=== PATIENT | male | born 1965 | race Caucasian/White ===

== ENCOUNTER 2017-02-18 17:35 | Observation (INO) ==
[2017-02-18] MEDS ORDERED: Aspirin 81 MG TAB.CHEW PO ONE (17:49)
--- NOTE | 2017-02-18 18:01 | Emergency Department Note ---
Disposition Clinical Impression: Chest pain of uncertain etiology Disposition: Still a Patient General Adult HPI - General Chief complaint: ED Shortness of Breath/Dyspnea Stated complaint: cardiac symptoms Time Seen by Provider: 02/18/17 17:48 Source: patient Limitations: no limitations Nursing Notes Reviewed: Yes Vital Signs Reviewed: Yes - History of Present Illness HPI Narrative: Mr. Anglin, a 51yo male, presents from home for evaluation of dyspnea with left arm pain. Dyspnea onset several weeks ago and progressive; now awakening the patient at night with associated diaphoresis. Left arm pain started 3-4 days ago. Described as from his shoulder to elbow, worse with movement. The patient has previous MT. Patient also notes increased personal stressors. Patient also notes 3-4 days of "chest discomfort" described as "feeling off." Patient has lost 30 pounds over 3 months, unintentional; he attributes this to stress. Patient notes a single episode of syncope while sitting in his bed. He noted he had been afebrile with general illness which she attributes to his right lower dental infection. Patient also has a known dental caries, follows with [facility]. PMH: HTN, HLD, CAD with ACS (MT in 2011, 1 stent), depression & anxiety Pain Scale: 4 - Related Data Allergies Allergy/AdvReac Type Severity Reaction Status Date / Time codeine Allergy Itching Verified 02/18/17 17:46 All systems ED: reviewed and negative except as stated. Review of Systems: As Per HPI Past Medical History - Past Medical History Medical history: Reports: hypertension, myocardial infarction Psychiatric history: Reports: depression - Social History Smoking Status: Current every day smoker Alcohol use: Reports: none Drug use: Reports: none Physical Exam Vital Signs Reviewed General: Patient is alert, oriented, and in no acute distress. HEENT: No facial asymmetry. Head is normocephalic and atraumatic. Oral mucosa moist. Trachea midline. Cardiovascular: Heart regular rate and rhythm without clicks, rubs, gallops, or murmurs. No JVD. PMI nondisplaced. No edema. Bilateral radial posterior tibial pulses 2/4. Respiratory: Symmetric chest rise with good respiratory effort. Bilateral breath sounds are clear without wheezing, crackles, or rhonchi. Abdomen: Bowel sounds present normoactive x-4 quadrants. Abdomen is soft, nondistended, and nontender. No organomegaly noted. Musculoskeletal: Spontaneously sleeping moving all extremities. Neuro: GCF 15. Alert and oriented 4. Skin: Warm, dry, intact. Psych: Patient's affect is appropriate for situation. - General Limitations: no limitations General appearance: alert, in no apparent distress Course Course Narrative: Patient has multiple cardiac risk factors: Hypertension, hyperlipidemia, current every day smoker, history of MT with stent. His symptoms are atypical for ACS however, for him, are consistent with the events leading to his prior MT. Will perform chest pain workup. Patient has been signed out to the night team, Dr. Moran and Dr. Araujo. Vital Signs Temperature 98.1 F 02/18/17 17:44 Pulse Rate 91 02/18/17 17:44 Respiratory Rate 14 02/18/17 17:44 Blood Pressure 161/97 02/18/17 17:44 O2 Sat by Pulse Oximetry 100 02/18/17 17:44 Temperature 98.1 F 02/18/17 17:44 Pulse Rate 84 02/18/17 18:03 Respiratory Rate 18 02/18/17 18:03 Blood Pressure 176/107 02/18/17 18:03 O2 Sat by Pulse Oximetry 100 02/18/17 18:03 Oxygen Delivery Oxygen Delivery Room Air Medical Decision Making - MDM Narrative Medical decision making narrative: This documentation is done with the assistance of [employer] dictation software. Though efforts have been made to ensure accuracy, there may be inaccuracies in junior data analyst or spelling or other typographical errors. I examined this patient and my medical decision-making was reviewed with the Resident Physician. I agree with the documented findings, disposition and treatment plan as described except to the extent set forth below. Patient seen and evaluated by Dr. Theodore myself, Devin's evaluation treatment plan, surprise given the patient's stay. Patient came in today feeling like he might be having a heart attack. Today pain in his jaw and also had and also some discomfort in his chest and little bit of dyspnea. His symptoms are very vague ago. He is not really have any pain at this time. He denies any back pain abdominal pain no vomiting. Her cardiac workup on him. He does have cardiac risk factors. Then we will reassess. He will be signed out to the evening ER team for further management disposition. Chest X-Ray 02/18/17 17:49 IMPRESSION: No significant findings in the chest. D/ / Brian Peña MD / Brian Peña MD Interpreting Provider: Brian Peña MD - Lab Data Result diagrams: 02/18/17 18:06 02/18/17 18:06 Lab Results 02/18/17 02/18/17 02/18/17 Range/Units 18:06 18:06 18:06 WBC 6.9 (4.3-11.1) K/mcL RBC 5.05 (4.19-5.50) M/mcL Hgb 15.6 (12.9-16.9) g/dL Hct 45.7 (37.5-50.1) % MCV 90.5 (83.0-100.0) fL MCH 30.9 (28.0-33.3) pg MCHC 34.1 (31.6-35.5) g/dL RDW 12.1 (11.5-14.5) % Plt Count 248 (140-400) K/mcL MPV 10.2 (9.4-12.4) fL Immature Gran % 0.1 (0-4) % Seg Neutrophils % 62.3 % Lymphocytes % 27.3 % Monocytes % 7.5 % Eosinophils % 2.2 % Basophils % 0.6 % Neutrophils # 4.3 (1.6-8.9) K/mcL Lymphocytes # 1.9 (0.6-4.6) K/mcL Monocytes # 0.5 (0.0-1.3) K/mcL Eosinophils # 0.2 (0.0-0.6) K/mcL Basophils # 0.0 (0.0-0.2) K/mcL Sodium 137 (136-145) mEq/L Potassium 4.2 (3.5-4.5) mEq/L Chloride 109 (98-109) mEq/L Carbon Dioxide 17 L (19-29) mEq/L BUN 22 (8-26) mg/dL Creatinine 0.90 (0.72-1.25) mg/dL Est GFR ( Amer) > 60 (> 60) Est GFR (Non-Af Amer) > 60 (> 60) BUN/Creatinine Ratio 24 (6-26) Glucose 89 (70-99) mg/dL Calculated Osmolality 287 (280-300) Calcium 9.0 (8.6-10.8) mg/dL Troponin I 0.00 (0-0.03) ng/mL - EKG Data EKG #1 EKG attestation: Yes I reviewed and interpreted this EKG. EKG results narrative: EKG dated to February 2017 is interpreted as sinus rhythm with rate of 88. Normal intervals. With 35, QRS, QT/QTC 310/350. Normal axis. Nonspecific ST T changes. No previous EKG for comparison.
[2017-02-18 18:13] LABS: Basophils % 0.6 %; Eosinophils # 0.2 K/mcL (0.0-0.6); Eosinophils % 2.2 %; Hematocrit 45.7 % (37.5-50.1); Hemoglobin 15.6 g/dL (12.9-16.9); Immature Granulocytes % 0.1 % (0-4); Lymphocytes # 1.9 K/mcL (0.6-4.6); Lymphocytes % 27.3 %; Mean Corpuscular HGB Conc 34.1 g/dL (31.6-35.5); Mean Corpuscular Hemoglobin 30.9 pg (28.0-33.3); Mean Corpuscular Volume 90.5 fL (83.0-100.0); Mean Platelet Volume 10.2 fL (9.4-12.4); Monocytes # 0.5 K/mcL (0.0-1.3); Monocytes % 7.5 %; Neutrophils # 4.3 K/mcL (1.6-8.9); Platelet Count 248 K/mcL (140-400); Red Blood Count 5.05 M/mcL (4.19-5.50); Red Cell Distribution Width 12.1 % (11.5-14.5); Segmented Neutrophils % 62.3 %
[2017-02-18 18:25] LABS: BUN/Creatinine Ratio 24 (6-26); Blood Urea Nitrogen 22 mg/dL (8-26); Carbon Dioxide 17 mEq/L (19-29); Chloride 109 mEq/L (98-109); Glucose 89 mg/dL (70-99); Osmolality,Calculated 287 (280-300); Potassium 4.2 mEq/L (3.5-4.5); Sodium 137 mEq/L (136-145); eGFR For African Americans > 60 (> 60); eGFR For Non-African Americans > 60 (> 60)
[2017-02-18 18:57] LABS: Bilirubin,Urine Negative (Negative); Blood,Urine Negative (Negative); Clarity,Urine Clear (Clear); Color,Urine Yellow (Yellow); Glucose,Urine (UA) Normal (Normal); Ketones,Urine Negative (Negative); Leukocyte Esterase,Urine Negative (Negative); Nitrite,Urine Negative (Negative); PH,Urine 6.5 pH Units (5.0-8.0); Protein,Urine Negative (Neg-Trace); Specific Gravity,Urine 1.016 (1.010-1.025); Urobilinogen,Urine Normal (Normal)
[2017-02-18 19:06] LABS: Alanine Aminotransferase 15 Units/L (0-55); Albumin 3.4 g/dL (3.5-5.0); Alkaline Phosphatase 109 Units/L (38-126); Aspartate Amino Transferase 15 Units/L (5-34); Bilirubin,Direct 0.1 mg/dL (0.0-0.5); Bilirubin,Indirect 0.2 mg/dL (0.0-1.2); Bilirubin,Total 0.3 mg/dL (0.2-1.2); Globulin 3.5 g/dL (2.4-3.5); Total Protein 6.9 g/dL (6.0-8.3)
--- NOTE | 2017-02-18 20:02 | Emergency Department Note ---
Disposition Clinical Impression: Chest pain of uncertain etiology Disposition: Admitted As Inpatient Condition: Good Referrals: NONE,PCP [Primary Care Provider] - Radha Hinds [Family Provider] - General Adult HPI - General Chief complaint: ED Shortness of Breath/Dyspnea Stated complaint: cardiac symptoms Time Seen by Provider: 02/18/17 17:48 Source: patient Limitations: no limitations - History of Present Illness Pain Scale: 4 - Related Data Allergies Allergy/AdvReac Type Severity Reaction Status Date / Time codeine Allergy Itching Verified 02/18/17 17:46 Past Medical History - Past Medical History Medical history: Reports: hypertension, myocardial infarction Psychiatric history: Reports: depression - Social History Smoking Status: Current every day smoker Alcohol use: Reports: none Drug use: Reports: none Physical Exam - General Limitations: no limitations General appearance: alert, in no apparent distress Course Course Narrative: He is having intermittent symptoms of CP, dyspnea, and left arm/jaw discomfort. He has a history of cardiac disease and similar symptoms from his heart attack in 2009 when a stent was placed. Will admit for CP rule out. His symptoms are not consistent with a pulmonary embolism. He is not having any dyspnea currently, and his vitals are normal, and no LE edema. Paged hospitalist for admission. Vital Signs Temperature 98.1 F 02/18/17 17:44 Pulse Rate 91 02/18/17 17:44 Respiratory Rate 14 02/18/17 17:44 Blood Pressure 161/97 02/18/17 17:44 O2 Sat by Pulse Oximetry 100 02/18/17 17:44 Temperature 98.1 F 02/18/17 17:44 Pulse Rate 82 02/18/17 19:00 Respiratory Rate 16 02/18/17 19:00 Blood Pressure 154/90 02/18/17 19:00 O2 Sat by Pulse Oximetry 98 02/18/17 19:00 Oxygen Delivery Oxygen Delivery Room Air Medical Decision Making - Medical Records Medical records reviewed: Yes I reviewed the patient's medical records. - Lab Data Lab results reviewed: Yes I reviewed the patient's lab results. Result diagrams: 02/18/17 18:06 02/18/17 18:06 Lab Results 02/18/17 02/18/17 02/18/17 Range/Units 18:06 18:06 18:06 WBC 6.9 (4.3-11.1) K/mcL RBC 5.05 (4.19-5.50) M/mcL Hgb 15.6 (12.9-16.9) g/dL Hct 45.7 (37.5-50.1) % MCV 90.5 (83.0-100.0) fL MCH 30.9 (28.0-33.3) pg MCHC 34.1 (31.6-35.5) g/dL RDW 12.1 (11.5-14.5) % Plt Count 248 (140-400) K/mcL MPV 10.2 (9.4-12.4) fL Immature Gran % 0.1 (0-4) % Seg Neutrophils % 62.3 % Lymphocytes % 27.3 % Monocytes % 7.5 % Eosinophils % 2.2 % Basophils % 0.6 % Neutrophils # 4.3 (1.6-8.9) K/mcL Lymphocytes # 1.9 (0.6-4.6) K/mcL Monocytes # 0.5 (0.0-1.3) K/mcL Eosinophils # 0.2 (0.0-0.6) K/mcL Basophils # 0.0 (0.0-0.2) K/mcL Sodium 137 (136-145) mEq/L Potassium 4.2 (3.5-4.5) mEq/L Chloride 109 (98-109) mEq/L Carbon Dioxide 17 L (19-29) mEq/L BUN 22 (8-26) mg/dL Creatinine 0.90 (0.72-1.25) mg/dL Est GFR ( Amer) > 60 (> 60) Est GFR (Non-Af Amer) > 60 (> 60) BUN/Creatinine Ratio 24 (6-26) Glucose 89 (70-99) mg/dL Calculated Osmolality 287 (280-300) Calcium 9.0 (8.6-10.8) mg/dL Total Bilirubin 0.3 (0.2-1.2) mg/dL Direct Bilirubin 0.1 (0.0-0.5) mg/dL Indirect Bilirubin 0.2 (0.0-1.2) mg/dL AST 15 (5-34) Units/L ALT 15 (0-55) Units/L Alkaline Phosphatase 109 (38-126) Units/L Troponin I 0.00 (0-0.03) ng/mL Serum Total Protein 6.9 (6.0-8.3) g/dL Albumin 3.4 L (3.5-5.0) g/dL Globulin 3.5 (2.4-3.5) g/dL Albumin/Globulin Ratio 1.0 L (1.1-2.2) Urine Color (Yellow) Urine Clarity (Clear) Urine pH (5.0-8.0) pH Units Ur Specific [place] (1.010-1.025) Urine Protein (Neg-Trace) mg/dL Urine Glucose (UA) (Normal) mg/dL Urine Ketones (Negative) mg/dL Urine Blood (Negative) Urine Nitrite (Negative) Urine Bilirubin (Negative) Urine Urobilinogen (Normal) mg/dL Ur Leukocyte Esterase (Negative) Ur Culture Indicated? (NO) 02/18/17 Range/Units 18:45 WBC (4.3-11.1) K/mcL RBC (4.19-5.50) M/mcL Hgb (12.9-16.9) g/dL Hct (37.5-50.1) % MCV (83.0-100.0) fL MCH (28.0-33.3) pg MCHC (31.6-35.5) g/dL RDW (11.5-14.5) % Plt Count (140-400) K/mcL MPV (9.4-12.4) fL Immature Gran % (0-4) % Seg Neutrophils % % Lymphocytes % % Monocytes % % Eosinophils % % Basophils % % Neutrophils # (1.6-8.9) K/mcL Lymphocytes # (0.6-4.6) K/mcL Monocytes # (0.0-1.3) K/mcL Eosinophils # (0.0-0.6) K/mcL Basophils # (0.0-0.2) K/mcL Sodium (136-145) mEq/L Potassium (3.5-4.5) mEq/L Chloride (98-109) mEq/L Carbon Dioxide (19-29) mEq/L BUN (8-26) mg/dL Creatinine (0.72-1.25) mg/dL Est GFR ( Amer) (> 60) Est GFR (Non-Af Amer) (> 60) BUN/Creatinine Ratio (6-26) Glucose (70-99) mg/dL Calculated Osmolality (280-300) Calcium (8.6-10.8) mg/dL Total Bilirubin (0.2-1.2) mg/dL Direct Bilirubin (0.0-0.5) mg/dL Indirect Bilirubin (0.0-1.2) mg/dL AST (5-34) Units/L ALT (0-55) Units/L Alkaline Phosphatase (38-126) Units/L Troponin I (0-0.03) ng/mL Serum Total Protein (6.0-8.3) g/dL Albumin (3.5-5.0) g/dL Globulin (2.4-3.5) g/dL Albumin/Globulin Ratio (1.1-2.2) Urine Color Yellow (Yellow) Urine Clarity Clear (Clear) Urine pH 6.5 (5.0-8.0) pH Units Ur Specific [place] 1.016 (1.010-1.025) Urine Protein Negative (Neg-Trace) mg/dL Urine Glucose (UA) Normal (Normal) mg/dL Urine Ketones Negative (Negative) mg/dL Urine Blood Negative (Negative) Urine Nitrite Negative (Negative) Urine Bilirubin Negative (Negative) Urine Urobilinogen Normal (Normal) mg/dL Ur Leukocyte Esterase Negative (Negative) Ur Culture Indicated? NO (NO)
--- NOTE | 2017-02-18 20:03 | Emergency Department Note ---
START Narrative - START START: I examined this patient and my medical decision-making was reviewed with the Resident Physician. I agree with the documented findings, disposition and treatment plan as described except to the extent set forth below. no lab abn cxr neg admit for cardiac obs status vss at this time chest pain free
[2017-02-18] MEDS ORDERED: Ibuprofen 600 MG TABLET PO ONE (20:14)
[2017-02-18] MEDS ORDERED: Naloxone 0.4 MG/ML INJ IVP PRN (20:44)
[2017-02-18] MEDS ORDERED: Nitroglycerin 1 INCH/GM PACKET TP ONE (20:47)
--- NOTE | 2017-02-18 20:53 | Internal Med History&Physical ---
Date of Encounter: 02/18/17 Time of Encounter: 20:49 Assessment and Plan (1) Chest pain Current visit: Yes Status: Acute trend trop TTE Exercise stress high risk hx nitropaste Qualifiers: Ischemic chest pain type: other angina pectoris type Qualified Code(s): I20.8 - Other forms of angina pectoris (2) CAD (coronary artery disease) Current visit: Yes Status: Acute continue DAPT Qualifiers: Qualified Code(s): I25.10 - Atherosclerotic heart disease of [place] coronary artery without angina pectoris (3) HTN (hypertension) Current visit: Yes Status: Acute continue anti-HTN Qualifiers: Hypertension type: essential hypertension Qualified Code(s): I10 - Essential (primary) hypertension (4) HLD (hyperlipidemia) Current visit: Yes Status: Acute statin Qualifiers: Qualified Code(s): E78.5 - Hyperlipidemia, unspecified Internal Medicine - H&P: HPI Chief complaint: CP, SOB History of present illness: Mr. Anglin is a 51 year old male with hx of IA 2010 s/p 1 stent who presents for CP eval. He reports non-specific symptoms of night sweats in the evening and PND with awakening in the middle of night feeling SOB which did not get better with time. Today, he experienced left side CP described as dull, burning ache with radiation to the left arm, rate 2/10. Little relationship with activity/ exertion. He reports stressors at work EKG personally reviewed with rate 82, NSR XR/XR chest 1V portable IMPRESSION: No significant findings in the chest. Past Med Surg Social Fam HX - Past Medical History Medical history: hypertension, myocardial infarction Psychiatric history: depression - Past Surgical History Surgical History: non-contributory, other (PCI) - Social History Smoking Status: Current every day smoker Alcohol use: none Drug use: none - Additional Family History Additional family history: HTN Internal Medicine - H&P: Meds 3 Allergy/AdvReac Type Severity Reaction Status Date / Time codeine Allergy Itching Verified 02/18/17 17:46 All Systems PM: A 10-system review of systems was performed and is negative for pertinent findings except as documented above in the HPI. Review of systems: ROS 14 point review of systems reviewed as best as possible given presentation. Pertinent positive or negative as per HPI or otherwise reviewed as negative - Constitutional Vitals: Temp Pulse Resp BP Pulse Ox 98.1 F 92 16 156/92 99 02/18/17 17:44 02/18/17 20:10 02/18/17 20:44 02/18/17 20:44 02/18/17 20:10 Exam: General - AAO x 3 Psych - Appropriate affect/speech. No agitation Eyes - FORD. Eye lids intact. No scleral icterus Heart - Sinus. RRR. S1 and S2 present. No added HS/murmurs appreciated. No elevated JVD appreciated. Lung - Adequate air entry b/l, No crackles/wheezes appreciated GI - Soft, non-tender. No hepatosplenomegaly/ascites. BS+ - No CVA/suprapubic tenderness or palpable bladder distension Skin - Intact. No rash/petechiae/ecchymosis. Warm extremities MSK - Joints with normal ROM. No joint swellings Internal Med - H&P Results - Labs CBC & Chem 7: 02/18/17 18:06 02/18/17 18:06
[2017-02-18] MEDS ORDERED: rOPINIRole 1 MG TABLET PO SCH (22:00)
[2017-02-19 01:43] LABS: BUN/Creatinine Ratio 20 (6-26); Blood Urea Nitrogen 20 mg/dL (8-26); Calcium 8.9 mg/dL (8.6-10.8); Chloride 108 mEq/L (98-109); Glucose 107 mg/dL (70-99); Osmolality,Calculated 293 (280-300); Potassium 3.9 mEq/L (3.5-4.5); Sodium 140 mEq/L (136-145); eGFR For African Americans > 60 (> 60); eGFR For Non-African Americans > 60 (> 60)
[2017-02-19 02:14] LABS: Carbon Dioxide 27 mEq/L (19-29)
[2017-02-19] MEDS ORDERED: clonazePAM 1 MG TABLET PO SCH (03:45)
[2017-02-19] MEDS ORDERED: Ibuprofen 400 MG TABLET PO PRN (03:49)
[2017-02-19] MEDS ORDERED: Methylphenidate HCl 10 MG TABLET PO SCH (08:00)
[2017-02-19] MEDS ORDERED: Aspirin Enteric Coated 81 MG Tablet PO SCH (09:00)
[2017-02-19 12:23] VITALS: BP 125/78
--- NOTE | 2017-02-22 06:57 | Electrocardiograph Report ---
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
--- NOTE | 2017-02-22 06:58 | Electrocardiograph Report ---
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
--- NOTE | 2017-03-01 16:56 | Discharge Summary ---
Date of Encounter: 02/19/17 Time of Encounter: 14:00 - Discharge Diagnosis (1) Chest pain Priority: Primary Status: Acute Qualifiers: Chest pain type: other chest pain Qualified Code(s): R07.89 - Other chest pain; R07.8 - Other chest pain (2) Depression Priority: Secondary Status: Chronic Qualifiers: Depression Type: unspecified Qualified Code(s): F32.9 - Major depressive disorder, single episode, unspecified (3) CAD (coronary artery disease) Priority: Secondary Status: Chronic Qualifiers: Coronary Disease-Associated Artery/Lesion type: [place] artery [place] vs. transplanted heart: [place] heart Associated angina: without angina Qualified Code(s): I25.10 - Atherosclerotic heart disease of [place] coronary artery without angina pectoris (4) HLD (hyperlipidemia) Priority: Secondary Status: Chronic Qualifiers: Hyperlipidemia type: unspecified Qualified Code(s): E78.5 - Hyperlipidemia , unspecified (5) HTN (hypertension) Priority: Secondary Status: Chronic Qualifiers: Hypertension type: essential hypertension Qualified Code(s): I10 - Essential (primary) hypertension - Discharge Medications Home Medications: Aspirin [Lo-Dose Aspirin EC] 81 mg PO DAILY 02/18/17 [History] Atorvastatin [Lipitor] 40 tab PO DAILY 02/18/17 [History] BuPROPion [Wellbutrin] 200 mg PO BID 02/18/17 [History] Clindamycin [Cleocin] 300 mg PO Q6HR 02/18/17 [History] FLUoxetine HCl [Fluoxetine HCl] 60 mg PO DAILY 02/18/17 [History] Lisinopril [Zestril] 20 mg PO DAILY 02/18/17 [History] Methylphenidate HCl [Ritalin] 20 mg PO BID 02/18/17 [History] Ropinirole HCl [Requip] 4 mg PO HS 02/18/17 [History] Allergies/Adverse Reactions: 3 Allergy/AdvReac Type Severity Reaction Status Date / Time codeine Allergy Itching Verified 02/18/17 17:46 Date of admission: 02/18/17 20:33 Primary care physician: PCP NONE Discharging clinician: Gena Gill Anticipated date of discharge: 02/19/17 - Patient Status Disposition: Left Against Medical Advice Condition: Good Functional capacity at discharge: independent ambulation - Discharge Instructions Follow Up With: NONE,PCP [Primary Care Provider] - Radha Hinds [Family Provider] - Hospital course: Mr. Anglin is a 51 year old male with the above medical problems, admitted with chest pain. Initial labs, EKG and chest XRay showed no acute abnormality. Telemetry remained uneventful and serial Troponins were negative. Echocardiogram showed preserved EF and no gross abnormality. Nuclear stress test was pending. Patient reported that he has h/o- agoraphobia and when explained about the stress test policy, he proceeded to get violently angry, pulled out his Telemetry leads and IV line, and wanted to leave AMA; he was alert and oriented at the time of signing out AMA. - Time Spent with Patient Total time spent providing and/or coordinating discharge services: Greater than 30 minutes (35 min) - Constitutional Vitals: Temp Pulse Resp BP Pulse Ox 97.6 F 76 16 125/78 98 02/19/17 12:23 02/19/17 12:23 02/19/17 12:23 02/19/17 12:23 02/19/17 12:23 General appearance: Present: A&O X 3, answers questions appropriately - Cardiovascular Cardiovascular exam: Present: RRR, +S1, +S2. Absent: diastolic murmur, gallop, rubs, systolic murmur
== END 2017-02-19 15:05 | disposition home or self-care (01) ==
LOC: EMEROO 17:35 → 3BNU 17:35 → SUATTDRO 20:33 → 3BNU 20:45
PROVIDERS: ADMIT Pediatrics; ATTEND Internal Medicine